=== PATIENT | male | born 1975 | race Caucasian/White ===

== ENCOUNTER 2023-12-15 16:25 | Emergency (ER) | payer MEDICAID ==
[~2023-12-15] VITALS: Ht 177.8 cm; Wt 127.3 kg
[2023-12-15 16:25] VITALS: TEMP 98.9
[2023-12-15] MEDS ORDERED: BENZ-38 PO (17:58)
[2023-12-15] MEDS ORDERED: ALBU8HFA INH (17:58)
[2023-12-15] MEDS ORDERED: AZIT250T83 PO (17:58)
[2023-12-15 18:03] VITALS: BP 165/78; PULSE 89; RESP 22; O2SAT 94
== END 2023-12-15 18:04 | disposition home or self-care (01) ==
LOC: ER 16:25
DX: J22 Unspecified acute lower respiratory infection (principal); F17.200 Nicotine dependence, unspecified, uncomplicated; Z88.0 Allergy status to penicillin; Z88.8 Allergy status to other drugs, medicaments and biological substances; Z79.899 Other long term (current) drug therapy
CPT/HCPCS: 71045; 99283